=== PATIENT | female | born 2000 | race American Indian/Alaskan Native ===

== ENCOUNTER 2019-02-14 23:30 | Emergency (ER) | payer OTHER ==
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
[2019-02-15] MEDS ORDERED: FLEXERIL PO ONE (00:48)
[2019-02-15] MEDS ORDERED: TYLENOL PO ONE (00:48)
[2019-02-15 01:44] LABS: HCG Qualitative,Urine Negative (Negative)
[2019-02-15 01:49] LABS: Bilirubin,Urine NEG (Negative); Blood,Urine NEG (Negative); Color,Urine Yellow (Yellow); Mucus,Urine 2+ /HPF; Protein,Urine <15 mg/dL mg/dL (Negative); Urobilinogen,Urine < 2.0 mg/dL (<2.0)
--- NOTE | 2019-02-15 03:08 | Cat Scan Report ---
PROCEDURE: CT CERVICAL SPINE WO CON TECHNIQUE: Computerized tomography of the cervical spine was performed from the skull base to T1 wit hout contrast material. CT DOSE LENGTH PRODUCT: mGycm HISTORY: Pain COMPARISONS: None . FINDINGS: C1-2: No significant abnormality . C2-3: There is mild narrowing of the disc. The canal size is normal. . C3-4: No significant abnormality . C4-5: There is mild narrowing of the disc. The canal size is normal. The nerve roots exit normally. . C5-6: No significant abnormality . C6-7: There is mild narrowing of the disc. The canal size is normal to the nerve roots exit normally . . C7-T1: No significant abnormality . Fractures: None . Other: No additional findings . IMPRESSION: Mild disc generation at several levels. No evidence of disc herniation, nerve impingement , canal stenosis, or facet arthropathy changes. This document is electronically signed by Fer Lynch MD., February 15 2019 03:07:16 AM ET
--- NOTE | 2019-02-15 03:33 | Cat Scan Report ---
PROCEDURE: CT LUMBAR SPINE WO CON TECHNIQUE: Computerized axial tomography of the lumbar spine was performed from T12 to the sacrum wi thout contrast material. HISTORY: Pain COMPARISONS: None . FINDINGS: The alignment is normal. The heights of the vertebral bodies and the disc spaces are normal. No acute fracture or dislocation of the lumbar spine. L1-2: No significant abnormality . L2-3: No significant abnormality . L3-4: No significant abnormality . L4-5: No significant abnormality . L5-S1: No significant abnormality . Other: None . IMPRESSION: No significant abnormality . This document is electronically signed by Deb Adler DO., February 15 2019 03:31:34 AM ET
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
[2019-02-15 04:41] VITALS: BP 108/72
== END 2019-02-15 04:38 | disposition home or self-care (01) ==
LOC: ED 23:30
DX: S60.222A Contusion of left hand, initial encounter (principal); M62.830 Muscle spasm of back; M62.838 Other muscle spasm; F12.10 Cannabis abuse, uncomplicated; Z87.891 Personal history of nicotine dependence; V49.49XA Driver injured in collision with other motor vehicles in traffic accident, initial encounter; Y93.89 Activity, other specified; Y92.89 Other specified places as the place of occurrence of the external cause; Y99.8 Other external cause status
CPT/HCPCS: 72125; 72131; 81001; 81025